=== PATIENT | male | born 1980 | race Caucasian/White ===

== ENCOUNTER 2020-08-17 20:30 | Emergency (ER) | payer BC ==
[~2020-08-17 20:30] MED LIST: ENDOCET 5-3251 EACH PO; FOLIC ACID 1 MG1 MG PO; FOLIC ACID0.4 MG PO; PHENERGAN 25 MG25 M1 PO; PREDNISONE 1 MG1 MG PO; RANITIDINE HCL300 MG PO; TREXALL10 MG PO; ZOFRAN ODT 4 MG4 MG SL; ZYLOPRIM 300 M300 MG PO
[2020-08-17 21:58] LABS: HEMOGLOBIN 15.5 gm/dl (14.0-17.5); RED BLOOD COUNT 4.58 M/UL (4.20-5.50); WHITE BLOOD COUNT 11.7 K/UL (4.5-11.0)
== END 2020-08-18 04:05 | disposition home or self-care (01) ==
LOC: ER1 20:30
PROVIDERS: Physician Assistant
DX: N13.2 Hydronephrosis with renal and ureteral calculous obstruction (principal); R79.89 Other specified abnormal findings of blood chemistry; I10 Essential (primary) hypertension
CPT/HCPCS: 80053; 81001; 83690; 85025; 87086; 99284